=== PATIENT | male | born 1940 | race Caucasian/White ===

== ENCOUNTER 2018-10-07 11:56 | Observation (INO) | payer MEDICARE, OTHER ==
[~2018-10-07] VITALS: Ht 175.3 cm; Wt 70.3 kg
[~2018-10-07 11:56] MED LIST: ACEBUTOLOL HCL200 MG PO; ACETAMINOPHEN325 M1 PO; ASPIRIN81 MG PO; AUGMENTIN 500-1 EACH PO; CINNAMON500 MG PO; DOXAZOSIN MESYLA2 MG PO; IRON PO; LASIX40 MG PO; LIPITOR10 MG PO; LIPITOR20 MG PO; LISINOPRIL10 MG PO; MELATONIN3 MG PO; PROCRIT10000 UNIT SQ; VITAMIN D35000 UNIT PO; ZYRTEC10 M3 PO
--- OUTSIDE RECORDS SUMMARY | 2018-10-07 11:59 | XMS REPORT | Encounter Summary ---
Author Organization Unknown Address [address] [place] [id number] Phone [phone] Care Team Providers Care Linotypist Name Role Phone Froylan Larson MD 3 [phone] Reason for Visit Smoking Cessation Instructions 1. Cigarette smoker smoking cessation counseling, 3-10 minutes Chantix Starting Month Box 0.5 mg (11)-1 mg (42) tablets in dose pack call back, chantix 2. Edema of lower extremity leg and ankle edema: care instructions 3. Essential hypertension high blood pressure: care instructions 4. Hyperlipidemia high cholesterol: care instructions 5. Renal dialysis 6. Bradycardia bradycardia: care instructions Discussion Note Pt is in NAD; Verbalizes understanding of all instructions with no questions at this time. Plan of Care Patient Instructions Before starting Chantix get clearance from your PCP for approval and notify medical chemist of plan of care: Take medications as prescribed. We will give you a call in 7days and you must return in 4 weeks for follow up with us or your PCP. In case of an emergency call 911 or go to nearest ER. Reminders Provider Appointments None recorded. Lab None recorded. Referral None recorded. Procedures None recorded. Surgeries None recorded. Imaging None recorded. Medications Name Start Date acetaminophen alprazolam 0.5 mg disintegrating tablet Take 1 tablet 3 times a day by oral route. atorvastatin 40 mg tablet carvedilol 25 mg tablet cetirizine 10 mg capsule Take by oral route. Chantix Starting Month Box 0.5 mg (11)-1 mg (42) tablets in dose pack Take PO as directed citalopram 20 mg tablet Take 1 tablet every day by oral route. doxazosin 2 mg tablet furosemide 80 mg tablet Klor-Con M20 mEq tablet,extended release lisinopril metolazone 2.5 mg tablet nifedipine ER 30 mg tablet,extended release 24 hr nifedipine ER 60 mg tablet,extended release 24 hr tramadol 50 mg tablet Medications Administered None recorded. Vitals Height Weight BMI Blood Pressure 5 ft 9 in 150 lbs 22.2 kg/m2 (1) 140/50 mm[Hg] (2) 145/52 mm[Hg] Lab Results None recorded. Allergies Code Code System Name Reaction Severity Status Onset 1191 RxNorm Aspirin Active Nsaids (Non-steroidal Anti-inflammatory Drug) Active Opioids - Morphine Analogues Active Problems Name Status Onset Date Source Hyperlipidemia Active 03/14/2018 Anxiety Active 03/14/2018 Essential Hypertension Active 03/14/2018 Bradycardia Active 03/14/2018 Edema of Lower Extremity Active 03/14/2018 Cigarette Smoker Active 03/14/2018 Renal Dialysis Active 03/14/2018 Procedures Date Name Performed by Appendectomy Information not available Lumbar Spine Fusion Information not available Repair Laminectomy Defect Information not available Total Knee Arthroplasty Information not available Vaccine List None recorded. Social History Smoking Status Current Every Day Smoker Past Encounters 03/14/2018 Cigarette Smoker; Edema of Lower Extremity; Essential Hypertension; Hyperlipidemia; Renal Dialysis; Bradycardia Mi Neri, [employer]-C: [address] [place] [address], Ph. History of Present Illness Smoking Cessation Request Reported By: Patient HPI: Tobacco History Describe tobacco use, Previous counseling attempt to quit, tobacco use: smoking: cigarettes: recent increase in usage, tobacco use: smoking: wishing to stop, tobacco use: smoking: wishing to stop: for health reasons; 78 YOM pt presents for smoking cessation. Pt reports he had stopped smoking for a year and about a week ago resumed smoking. He has used Chantix in the past and was successful with smoking cessation. He denies any S.E from the medications. Pt has h/o HTN, HLD and acute renal failure and is currently undergoing dialysis 3 times a week, last treatment on 03-11-18. Per pt, he was cleared by nephrology (Dr Olguin) to start Chantix today but he asked him to go to his PCP for Rx. Pt reports he was not able to get an appointment with PCP today (Dr Larson) Depression Scale: 0 (Not at all) 1 (Several days) 2 (More than half days) 3 (Nearly every day): 1. Little interest or pleasure in doing things Score. 2. Feeling down, depressed, or hopeless Score. 3. Trouble falling or staying asleep Score. 4. Feeling tired or having little energy Score. 5. Poor appetite or overeating Score. 6. Feeling bad about yourself, or that you are a failure, or have let yourself or family down Score. 7. Trouble concentrating on things such as reading the newspaper or watching television Score. 8. Moving/Speaking noticeably slower or being fidgety/restless that you move around more than usual Score. 9. Thoughts that you would be better off or of hurting yourself or others Score Depression Scale Score e10: Likely Major Depression. Scores e15 exclude Chantix therapy: Depression Score Ranges: 5 to 9 Mild; 10 to 14 Moderate; 15 to 19 Moderately Severe; 20+ Severe Depression Scale Score. How difficult have these problems made it to work, take care of home, or get along with others? Not difficult at all, somewhat difficult, very difficult, or extremely difficult? Review of Systems Basic Reported By: Patient Constitutional: Constitutional: no fever Eyes: Eyes: no eye complaints Aknv-Jdzr-Qqtiq-Throat: Ears: no ear complaints. Nose: no nose/sinus problems. Mouth/Throat: no sore throat, no bleeding gums, no mouth complaints, no teeth problems Cardiovascular: Cardiovascular: no chest pain, no shortness of breath, no known heart murmur Respiratory: Respiratory: no cough, no wheezing, no shortness of breath Gastrointestinal: Gastrointestinal: no abdominal pain, no vomiting / diarrhea Genitourinary: Genitourinary: no urinary complaints, no discharge Musculoskeletal: Musculoskeletal: no muscle aches, no muscle weakness, no arthralgias/joint pain, no back pain Skin: Skin: no abnormal / changing mole, no jaundice, no rashes Neurologic: Neurologic: no loss of consciousness, no weakness, no numbness, no seizures, no dizziness, no headaches Physical Exam Adult Basic Reported By: Patient Constitutional: General Appearance: healthy-appearing, well-nourished, well-developed. Level of Distress: NAD. Ambulation: ambulating normally Psychiatric: Mental Status: active and alert. Orientation: to time, to place, to person Eyes: Lids and Conjunctivae: non-injected, no discharge, no pallor Hrr-Ohya-Xghhh-Throat: Ears: no lesions on external ear, no outer ear tenderness, EACs clear, TMs clear. Nose: no lesions on external nose, nares patent, no septal deviation, nasal passages clear, no sinus tenderness, no nasal discharge. Lips, Teeth, and Gums: no mouth or lip ulcers, no bleeding gums, poor dentition. Oropharynx: moist mucous membranes, no erythema, no exudates, tonsils not enlarged Neck: Lymph Nodes: no cervical LAD Lungs: Respiratory effort: no dyspnea, no tachypnea, no use of accessory muscles, no intercostal retractions. Auscultation: breath sounds normal Cardiovascular: Heart Auscultation: no murmurs, bradycardia Neurologic: Gait and Station: normal gait, normal station
--- OUTSIDE RECORDS SUMMARY | 2018-10-07 11:59 | XMS REPORT ---
Author Author [facility] Address Unknown Phone Unavailable Care Team Providers Care Resident Care Provider Name Role Phone FUNMI NAGEL Unavailable Unavailable Problems This patient has no known problems. Allergies, Adverse Reactions, Alerts This patient has no known allergies or adverse reactions. Medications This patient has no known medications. Results Test Description Test Time Test Comments Text Results Atomic Results Result Comments US RENAL DOPPLER LTD [place] [address] Patient Name: JAMES BLEU MR #: [id number] : 1940 Age/Sex: 77/M Req #: [id number] Adm Physician: Ordered by: FUNMI NAGEL MD Report #: [id number] Location: US Room/Bed: Procedure: [id number] US/US RENAL DOPPLER LTD Exam Date: Exam Time: REPORT STATUS: Signed Renal ultrasound with Doppler, April 16, 2017 Clinical history: Renal artery stenosis Comparison: None Technique: Reddy scale, color Doppler and spectral Doppler ultrasound with waveform analysis of the kidneys and renal arteries. Findings: Right kidney: 9.1 x 5.2 x 4.2 cm. Cortical thickness 1.4 cm. Left kidney: 11.3 x 6 x 5.2 cm. Cortical thickness 1.4 cm. Normal parenchymal echogenicity bilaterally. No evidence of stone, cyst or mass. No hydronephrosis. Aorta: Proximal: 65 cm/s; mid: 51 cm/s; distal 68 cm/s. Renal arteries: Right: Renal artery: Ostium: 63 cm/s; mid 93 cm/s; distal 99 cm/s. Segmental arteries: Superior: 58 cm/s; mid 47 cm/s; inferior 64 cm/s. Right renal artery to aorta peak systolic velocity ratio: 1.4 Right kidney resistive index: 0.83-0.88 Left: Renal artery: Ostium: 101 cm/s; mid 136 cm/s; distal 153 cm/s. Segmental arteries: Superior: 105 cm/s; mid 148 cm/s; inferior 105 cm/s. Right renal artery to aorta peak systolic velocity ratio: 2.2 Left kidney resistive index: 0.77-0.89 Both renal veins are patent. Both renal arteries demonstrate appropriate acceleration and biphasic waveform with brisk peak systolic upstroke. Impression: 1. No sonographic evidence of renal artery stenosis. 2. The resistive index of both kidneys is elevated, suggesting underlying chronic medical renal disease. This report was generated with voice-recognition technology. Errors in agency recruiter can occur. Please interpret accordingly and contact a radiologist if there are any questions regarding the report. Signed by: Dr. Cali khan M.D. on 04/16/2017 3:45 PM Dictated By: CALI CABALLERO MD 154 Transcribed By: RONNY on 04/16/171544 COPY TO: FUNMI NAGEL MD RENAL RETROPERITONEAL COMP [place] [address] Patient Name: JAMES BLUE MR #: [id number] : 1940 Age/Sex: 77/M Req #: [id number] Adm Physician: Ordered by: FUNMI NAGEL MD Report #: [id number] Location: Room/Bed: Procedure: [id number] US/US RENAL RETROPERITONEAL COMP Exam Date: Exam Time: REPORT STATUS: Signed Renal ultrasound with Doppler, April 16, 2017 Clinical history: Renal artery stenosis Comparison: None Technique: Reddy scale, color Doppler and spectral Doppler ultrasound with waveform analysis of the kidneys and renal arteries. Findings: Right kidney: 9.1 x 5.2 x 4.2 cm. Cortical thickness 1.4 cm. Left kidney: 11.3 x 6 x 5.2 cm. Cortical thickness 1.4 cm. Normal parenchymal echogenicity bilaterally. No evidence of stone, cyst or mass. No hydronephrosis. Aorta: Proximal: 65 cm/s; mid: 51 cm/s; distal 68 cm/s. Renal arteries: Right: Renal artery: Ostium: 63 cm/s; mid 93 cm/s; distal 99 cm/s. Segmental arteries: Superior: 58 cm/s; mid 47 cm/s; inferior 64 cm/s. Right renal artery to aorta peak systolic velocity ratio: 1.4 Right kidney resistive index: 0.83-0.88 Left: Renal artery: Ostium: 101 cm/s; mid 136 cm/s; distal 153 cm/s. Segmental arteries: Superior: 105 cm/s; mid 148 cm/s; inferior 105 cm/s. Right renal artery to aorta peak systolic velocity ratio: 2.2 Left kidney resistive index: 0.77-0.89 Both renal veins are patent. Both renal arteries demonstrate appropriate acceleration and biphasic waveform with brisk peak systolic upstroke. Impression: 1. No sonographic evidence of renal artery stenosis. 2. The resistive index of both kidneys is elevated, suggesting underlying chronic medical renal disease. This report was generated with voice-recognition technology. Errors in agency recruiter can occur. Please interpret accordingly and contact a radiologist if there are any questions regarding the report. Signed by: Dr. Cali Caballero M.D. on 04/16/2017 3:45 PM Dictated By: CALI CABALLERO MD [id number] Transcribed By: RONNY on 04/16/17 0701 COPY TO: FUNMI NAGEL MD
--- OUTSIDE RECORDS SUMMARY | 2018-10-07 11:59 | XMS REPORT | Continuity of Care Document ---
Author Author Gabriel carlitos [facility] Address Unknown Phone Unavailable Problems Problem Status Onset Date Classification Date Reported Comments Source Renal dialysis 03/14/2018 Diagnosis 03/14/2018 [facility] Essential hypertension 03/14/2018 Diagnosis 03/14/2018 [facility] Edema of lower extremity 03/14/2018 Diagnosis 03/14/2018 [facility] Cigarette smoker 03/14/2018 Diagnosis 03/14/2018 [facility] Hyperlipidemia 03/14/2018 Problem 03/14/2018 [facility] Anxiety 03/14/2018 Problem 03/14/2018 [facility] Essential Hypertension 03/14/2018 Problem 03/14/2018 [facility] Bradycardia 03/14/2018 Problem 03/14/2018 [facility] Edema of Lower Extremity 03/14/2018 Problem 03/14/2018 [facility] Cigarette Smoker 03/14/2018 Problem 03/14/2018 [facility] Renal Dialysis 03/14/2018 Problem 03/14/2018 [facility] Medications Medication Details Route Status Patient Instructions Ordering Provider Order Date Source acetaminophen acetaminophen Active [facility] Alprazolam 0.5 MG Disintegrating Oral Tablet alprazolam 0.5 mg disintegrating tablet Take 1 tablet 3 times a day by oral route. Active [facility] atorvastatin 40 MG Oral Tablet atorvastatin 40 mg tablet Active [facility] carvedilol 25 MG Oral Tablet carvedilol 25 mg tablet Active [facility] cetirizine hydrochloride 10 MG Oral Capsule cetirizine 10 mg capsule Take by oral route. Active [facility] Chantix Starting Month Box 0.5 mg (11)-1 mg (42) tablets in dose pack Chantix Starting Month Box 0.5 mg (11)-1 mg (42) tablets in dose pack Take PO as directed Active [facility] Citalopram 20 MG Oral Tablet citalopram 20 mg tablet Take 1 tablet every day by oral route. Active [facility] Doxazosin 2 MG Oral Tablet doxazosin 2 mg tablet Active [facility] Furosemide 80 MG Oral Tablet furosemide 80 mg tablet Active [facility] Microencapsulated Potassium Chloride 20 MEQ Extended Release Oral Tablet [Klor-Con] Klor-Con M20 mEq tablet,extended release Active [facility] lisinopril lisinopril Active [facility] Metolazone 2.5 MG Oral Tablet metolazone 2.5 mg tablet Active [facility] Osmotic 24 HR Nifedipine 30 MG Extended Release Oral Tablet nifedipine ER 30 mg tablet,extended release 24 hr Active [facility] Osmotic 24 HR Nifedipine 60 MG Extended Release Oral Tablet nifedipine ER 60 mg tablet,extended release 24 hr Active [facility] tramadol hydrochloride 50 MG Oral Tablet tramadol 50 mg tablet Active [facility] Allergies, Adverse Reactions, Alerts Substance Category Reaction Severity Reaction type Status Date Reported Comments Source Opioids - Morphine Analogues Allergy to substance 03/14/2018 [facility] Aspirin Allergy to substance 03/14/2018 [facility] Nsaids (Non-steroidal Anti-inflammatory Drug) Allergy to substance 03/14/2018 [facility] Immunizations Immunization Date Given Site Status Last Updated Comments Source Results Order Name Results Value Reference Range Date Interpretation Comments Source Vital Signs Vital Sign Value Date Comments Source Diastolic (mm Hg) 52 03/14/2018 [facility] Height 69 03/14/2018 [facility] Systolic (mm Hg) 145 03/14/2018 [facility] Weight 150 03/14/2018 [facility] Encounters Location Location Details Encounter Type Encounter Number Reason For Visit Attending Provider ADM Date DC Date Status Source [place] - [facility] - [id number] Neri, [facility] [address] [facility] [place] [address], Ph. [id number] Mi Neir 03/14/2018 [facility] Procedures Procedure Code Date Perfomer Comments Source Appendectomy [facility] Lumbar Spine Fusion 04981 [facility] Repair Laminectomy Defect 07831 [facility] Total Knee Arthroplasty 63962 [facility]
--- NOTE | 2018-10-07 12:40 | NUR ---
DR. CROUCH IN ROOM AT THIS TIME.
[2018-10-07] MEDS ORDERED: ASPIRIN 81 MG CHEW TAB PO ONE (13:00)
[2018-10-07 13:05] LABS: BASOPHILS % 0.5 % (0.0-1.0); EOSINOPHILS # (AUTO) 0.1 (0.0-0.4); HEMATOCRIT 41.8 % (38.2-49.6); HEMOGLOBIN 12.6 g/dL (14.0-18.0); LYMPHOCYTES # (AUTO) 0.5 (1.0-3.2); LYMPHOCYTES % 7.4 % (18.0-39.1); MEAN CORPUSCULAR HEMOGLOBIN 28.9 pg (28-32); MEAN CORPUSCULAR HGB CONC 30.1 g/dL (31-35); MEAN CORPUSCULAR VOLUME 95.9 fL (81-99); MONOCYTES # (AUTO) 0.8 (0.2-0.8); MONOCYTES % 11.4 % (4.4-11.3); NEUTROPHILS # (AUTO) 5.8 (2.1-6.9); NEUTROPHILS % 79.2 % (38.7-80.0); PLATELET COUNT 154 x10e3/uL (140-360); RED BLOOD COUNT 4.36 x10e6/uL (4.3-5.7); RED CELL DISTRIBUTION WIDTH 17.2 % (11.7-14.4)
[2018-10-07 13:18] LABS: ALBUMIN 3.9 g/dL (3.5-5.0); ALBUMIN/GLOBULIN RATIO 0.9 (0.8-2.0); ANION GAP 15.8 mmol/L (8-16); CALCIUM 9.5 mg/dL (8.4-10.2); CREATININE, SERUM 3.58 mg/dL (0.72-1.25); POTASSIUM 3.8 mmol/L (3.5-5.1)
[2018-10-07 14:14] LABS: CREATINE KINASE MB 1.2 ng/mL (0-5.0)
--- NOTE | 2018-10-07 14:41 | Diagnostic Imaging Report ---
Exam: Head CT without contrast History: Vertigo, dizziness, history of lung cancer. Comparison studies: None Technique: Axial images were obtained from the skull base to the vertex. Coronal and sagittal images reconstructed from the axial data. Dose modulation, iterative reconstruction, and/or weight based adjustment of the mA/kV was utilized to reduce the radiation dose to as low as reasonably achievable. Radiation dose: Total DLP: 921 mGy*cm. Estimated effective dose: DLP x 0.015 Intravenous contrast: None Findings: Scalp: No abnormalities. Bones: No fractures, blastic or lytic lesions. Brain sulci: Appropriate for age. Ventricles: Right lateral ventricle is partially effaced secondary to mass/edema described below. No hydrocephalus. Extra-axial spaces: No masses, no fluid collection. Parenchyma: At least 2 frontal lobe lesions with central hypodensity and small focal peripheral calcification or hemorrhage. Largest in the right inferomedial frontal lobe measures up to approximately 2.7 cm. Additional lesion at the junction of the right superior frontal gyrus and cingulate gyrus measures approximately 2.3 cm. Lesions are with moderate surrounding vasogenic edema which which extends into the adjacent deep and subcortical frontal white matter, along the corpus callosum and right subinsular white matter. Regional mass effect results in approximately 5 to 6 mm right to left subfalcine herniation. The frontal horn of the right lateral ventricle is partially effaced. Punctate calcification in the right superior parietal lobe without surrounding edema or mass effect may be sequela of remote infection/inflammation. Subtle hypodensities in the supratentorial white matter nonspecific most compatible with chronic microvascular ischemic changes. Sellar/suprasellar region: No abnormalities. Craniocervical junction: Patent foramen magnum. No Chiari one malformation. Incidental findings: Lens replacements for previous cataract surgery. Atherosclerotic calcifications in the carotid siphons. IMPRESSION: 1. At least 2 right frontal lobe lesions which are partially hemorrhagic or calcified are with moderate surrounding vasogenic edema. Largest lesion measures up to proximal 2.7 cm. Working diagnosis are metastases. 2. Regional mass effect results in 5-6 mm right to left subfalcine herniation. No uncal herniation. Brain MRI with IV contrast is recommended to further evaluate. Findings discussed with Tyree Woodard NP at 2:33 PM on 10/07/2018. Signed by: Dr. Tanner Lam M.D. on 10/07/2018 2:38 PM
[2018-10-07] MEDS ORDERED: DEXAMETHASONE SOD PHOS 10 MG/1 ML VIAL IV NR (15:45)
[2018-10-07] MEDS ORDERED: SODIUM CHLORIDE FLUSH 10 ML SYR INJ PRN (17:00)
[2018-10-07] MEDS ORDERED: ONDANSETRON HCL INJ 2MG/ML 2ML 2 MG/ML VIAL IV PRN (17:00)
[2018-10-07] MEDS ORDERED: DEXTROSE 50% SYRINGE 50 ML IV PRN (17:00)
--- NOTE | 2018-10-07 17:07 | Diagnostic Imaging Report ---
Examination: Single AP view of the chest. COMPARISON: None. INDICATION: Unsteady gait DISCUSSION: Lines/tubes: None. Lungs: Right upper lobe scarring. No consolidation otherwise. Pleura: There is no pleural effusion or pneumothorax. Heart and mediastinum: The heart and the mediastinum are unremarkable. Bones and soft tissues: No acute bony abnormalities. IMPRESSION: 1. No acute cardiopulmonary abnormalities. Signed by: Dr. Matias Mason M.D. on 10/07/2018 5:04 PM
[2018-10-07] MEDS: DEXAMETHASONE SOD PHOS INJ 4 MG/ML VIAL IV SCH (18:00)
[2018-10-07 18:45] VITALS: BP 171/74
--- NOTE | 2018-10-07 19:05 | NUR ---
Pt arrived on unit at 1830. Report received and walking rounds complete. Pt A&O and in no apparent distress. Pt on tele and room air. Pt has cane for assistive device. All safety measures ensured and call pickett near. Pt encouraged to use call pickett for assistance.
[2018-10-07 20:59] VITALS: BP 171/74
[2018-10-07] MEDS: INSULIN LISPRO 100 UNIT/1 ML 3ML VIAL SQ SCH (21:00)
[2018-10-07 21:01] VITALS: BP 171/74
--- NOTE | 2018-10-07 21:25 | NUR ---
Call put out to Dr. Cisneros for pt to receive Melatonin home med to sleep. Awaiting call back.
[2018-10-08] VITALS: BP 198/77
[2018-10-08 04:00] VITALS: BP 190/81
--- NOTE | 2018-10-08 04:52 | NUR ---
Dr. Cisneros returned call. gave okay for pt to have Melatonin 3mg home med restarted. Pt states he no longer needs it but will have it for tonight.
[2018-10-08] MEDS ORDERED: MELATONIN 3 MG TAB PO PRN ×2 (05:00→11:45)
[2018-10-08] MEDS: DEXAMETHASONE SOD PHOS INJ 4 MG/ML VIAL IV SCH ×3 (05:11→12:19)
[2018-10-08 05:18] LABS: BASOPHILS % 0.6 % (0.0-1.0); EOSINOPHILS # (AUTO) 0.1 (0.0-0.4); EOSINOPHILS % 1.4 % (0.0-6.0); HEMATOCRIT 38.3 % (38.2-49.6); LYMPHOCYTES # (AUTO) 0.7 (1.0-3.2); LYMPHOCYTES % 10.7 % (18.0-39.1); MEAN CORPUSCULAR HEMOGLOBIN 29.2 pg (28-32); MEAN CORPUSCULAR HGB CONC 31.3 g/dL (31-35); MEAN CORPUSCULAR VOLUME 93.2 fL (81-99); MONOCYTES % 14.6 % (4.4-11.3); NEUTROPHILS # (AUTO) 4.8 (2.1-6.9); NEUTROPHILS % 72.4 % (38.7-80.0); PLATELET COUNT 145 x10e3/uL (140-360); RED BLOOD COUNT 4.11 x10e6/uL (4.3-5.7); RED CELL DISTRIBUTION WIDTH 17.3 % (11.7-14.4)
[2018-10-08 05:43] LABS: ANION GAP 16.4 mmol/L (8-16); CALCIUM 9.2 mg/dL (8.4-10.2); CREATININE, SERUM 4.77 mg/dL (0.72-1.25); POTASSIUM 3.4 mmol/L (3.5-5.1)
[2018-10-08] MEDS: INSULIN LISPRO 100 UNIT/1 ML 3ML VIAL SQ SCH ×2 (07:30→11:30)
[2018-10-08 07:57] VITALS: BP 177/78
[2018-10-08] MEDS ORDERED: POTASSIUM CHLORIDE 10MEQ EA PO ONE (09:00)
[2018-10-08 09:10] VITALS: BP 177/78
[2018-10-08] MEDS ORDERED: GADOBENATE DIMEGLUMINE 1 ML IV ONE (09:42)
[2018-10-08] MEDS ORDERED: LASIX40 MG PO (10:20)
[2018-10-08] MEDS ORDERED: ULTRAM 50MG50 MG PO (10:20)
[2018-10-08] MEDS ORDERED: RENAGEL800 MG PO (10:20)
[2018-10-08] MEDS ORDERED: MELATONIN3 MG PO (10:20)
[2018-10-08] MEDS ORDERED: CETIRIZINE HCL10 MG PO (10:20)
[2018-10-08] MEDS ORDERED: XANAX0.5 MG PO (10:20)
[2018-10-08] MEDS ORDERED: COREG3.125 MG PO (10:20)
[2018-10-08] MEDS ORDERED: LIPITOR20 MG PO (10:20)
[2018-10-08] MEDS ORDERED: BENADRYL25 M1 PO (10:20)
[2018-10-08] MEDS ORDERED: VITAMIN D35000 UNIT PO (10:20)
[2018-10-08] MEDS ORDERED: CITALOPRAM HBR20 MG PO (10:20)
[2018-10-08] MEDS ORDERED: DOXAZOSIN MESYLA2 MG PO (10:20)
[2018-10-08] MEDS ORDERED: DEXAMETHASONE4 MG PO (10:22)
--- NOTE | 2018-10-08 10:52 | History and Physical ---
HISTORY AND PHYSICAL AND DISCHARGE SUMMARY CHIEF COMPLAINT: "I keep falling down." HISTORY OF PRESENT ILLNESS: This is a 78-year-old white man, who presents to [facility] Emergency Room with a 2-month history of unsteady gait and frequent falls. The patient has a history of non-small cell lung cancer that was diagnosed in 2017. The patient subsequently underwent a right-sided stereotactic radiation that was successful. The patient did not receive chemotherapy. The patient was a heavy tobacco smoker, but quit in March 2018. The patient was admitted yesterday and was diagnosed with ataxia. On admission, the patient had CT of the head without contrast that revealed two right frontal lobe lesions, one measured 2.7 cm, the other one measured 2.3 cm. The radiologist felt that these lesions were very consistent with brain metastases. The patient was given one dose of intravenous dexamethasone 10 mg strength in emergency room, and since then he is receiving dexamethasone 4 mg intravenous every 6 hours scheduled. The patient states that he feels his ataxia has improved. The patient has chronic shortness of breath and cough, but not worse than usual. The patient has chest pain at times. A chest x-ray performed in the emergency room revealed right upper lobe scarring, but no consolidation was appreciated. The patient's lab work was unremarkable, but it did reveal findings consistent with renal failure. This gentleman does have end-stage renal disease and yesterday he underwent hemodialysis. In fact, the reason he came to emergency room is because his blood pressure was so low. REVIEW OF SYSTEMS: GENERAL: The patient has apparently lost 12 pounds unintentionally in the last three months unintentionally. No fever or chills. No headaches or vision changes. He does complain of lightheadedness and dizziness at times. HEENT: No headaches. No visual changes. CARDIOVASCULAR: Chest pain/shortness of breath, as well as chronic cough. The patient denies any purulent sputum production. Denies any palpitations. GI: No nausea, vomiting, or constipation. : The patient still urinates even though he is on hemodialysis. Neuromuscular: The patient complaints of unsteady gait and frequent falls for the last two months. PAST MEDICAL HISTORY: 1. End-stage renal disease (since June 2017). 2. Coronary artery disease (coronary artery bypass grafting in June 2017). 3. Non-small cell non-small cell lung cancer diagnosed in 2018 with subsequent stereotactic radiation. 4. Anemia secondary to chronic kidney disease/chronic disease. 5. Depression. 6. Anxiety disorder. 7. Right carotid artery atherosclerosis. 8. Tobacco abuse (tobacco free since March 2018). 9. Benign prostatic hypertrophy. PAST SURGICAL HISTORY: 1. Left upper extremity AV fistula placement. 2. Coronary artery bypass grafting in June 2017. 3. Bilateral total knee replacement. 4. Lumbar spine surgery twice. 5. Femoral-popliteal bypass (right-sided). 6. Right lung stereotactic radiation. MEDICATIONS: 1. Furosemide 80 mg b.i.d. 2. Lisinopril/hydrochlorothiazide 20 mg/12.5 mg once daily. 3. Atorvastatin 40 mg at bedtime. 4. Alprazolam 0.5 mg b.i.d. for anxiety. 5. Metolazone 2.5 mg daily. 6. Zyrtec 10 mg daily. 7. Doxazosin 2 mg daily. 8. Melatonin 5 mg at bedtime. 9. Citalopram 20 mg daily. 10. Carvedilol 6.25 mg b.i.d. 11. Vitamin D3 5000 units daily. 12. Ultram 50 mg daily p.r.n. pain. 13. Diphenhydramine 50 mg at bedtime p.r.n. insomnia/sinus allergies. 14. Sevelamer 1600 mg t.i.d. with meals. ALLERGIES: NO KNOWN DRUG ALLERGIES. SOCIAL HISTORY: He is . Lives with his . He is currently retired. The patient was a heavy tobacco smoker, quit in March 2018. The patient states he still drinks alcohol socially. FAMILY HISTORY: Multiple family members with coronary artery disease. Father of congestive heart failure. Father also had coronary artery bypass grafting. PHYSICAL EXAMINATION: GENERAL: He is awake, alert, fluent, very pleasant, and cooperative with exam. VITAL SIGNS: Blood pressure at this time is 178/78, pulse 74, respiratory rate of 16, oxygen saturation 95%, temperature 99.0, height 5 feet 9 inches, weight 155 pounds. BMI is 22, blood pressure in the emergency room is 154/68 (the patient is currently not taking his blood pressure medications). INTEGUMENT: Skin is warm and dry. No pallor, jaundice, or diaphoresis. HEENT: Anicteric sclerae. Moist mucous membranes. NECK: Supple. No evidence of jugular venous distention. CARDIOVASCULAR: Distant heart sounds. Regular rate and rhythm with a systolic murmur/rub. LUNGS: No rales. No rhonchi or wheezing. ABDOMEN: Benign. EXTREMITIES: No joint deformities. Intact. DIAGNOSES: 1. Ataxia, likely secondary to the brain metastases. 2. Two frontal brain lesions, likely brain metastases. 3. History of non-small cell lung cancer (2018). 4. Status post stereotactic lung irradiation in 2018. 5. End-stage renal disease. 6. Coronary artery disease (history of coronary artery bypass grafting in June 2017). 7. Tobacco abuse (quit March2017). PLAN: 1. The patient is not to resume tobacco smoking. 2. We will proceed with MRI of the brain as ordered by the patient's oncologist. 3. Will likely discharge the patient home today after MRI of the brain with oral dexamethasone. 4. We will hold lisinopril/hydrochlorothiazide because of the patient's symptomatic hypotension. 5. We will also hold metolazone since the patient is having symptomatic hypotension and he has no leg edema. 6. If the patient is discharged home today, he will follow up with his radiation oncologist, namely Dr. Pierson within one week. 7. The patient will follow up with his primary care physician, namely myself, Dr. Sterling Cisneros in two days on September. 8. The patient will follow up with his oncologist, namely Dr. Duarte within a week. 9. The patient will be discharged with his home medications except he will not take metolazone or lisinopril/hydrochlorothiazide. 10. The patient will be discharged home with dexamethasone 2 mg three times a day for two weeks. I spent an hour in the care of this patient. MD HOLLI George/MACEY /[id number] cc: Qiana Duarte MD MTDD
[2018-10-08 11:23] VITALS: BP 200/84
[2018-10-08] MEDS ORDERED: ALPRAZOLAM 0.5 MG TAB PO PRN (11:45)
[2018-10-08] MEDS ORDERED: CLONIDINE HCL 0.1 MG TAB PO ONE (11:45)
[2018-10-08] MEDS ORDERED: DIPHENHYDRAMINE HCL 25 MG CAP PO PRN (11:45)
--- NOTE | 2018-10-08 12:45 | NUR ---
security notified of missing phone and are here talking to family. ER also notified and are trying to locate phone.
--- NOTE | 2018-10-08 13:13 | Diagnostic Imaging Report ---
EXAMINATION: MRI of the brain without contrast. HISTORY: Imbalance, metastatic lung cancer, evaluate for brain tumor COMPARISON: Head CT 10/07/2018 TECHNIQUE: Sagittal T2; axial DWI, T2, FLAIR, T1-IR, T2 gradient echo; coronal FLAIR. IMAGE QUALITY: Adequate. FINDINGS: Parenchyma: 1. Approximately 2 x 2.4 cm heterogeneous signal intensity partially solid and partially cystic (mostly low on T1, high on T2, FLAIR and DWI) mass in the right medial frontal lobe especially which narrows, with prominent surrounding vasogenic edema and mild local mass effect, the mass extends minimally extending to the midline. Mild approximately 5 mm midline shift to the left. Previously seen hyperdense likely hemorrhagic focus on CT is not clearly visualized on GRE sequenced at this time. 2. A second approximately 2.9 x 2.4 cm similar heterogeneous signal intensity partially solid and partially cystic mass in the posterior right medial orbital frontal gyri , with prominent surrounding vasogenic edema and local mass effect, approximately 6 mm midline shift to the left. 3. Focal FLAIR hyperintensity and subtle restricted diffusion in the left precentral gyrus near the vertex region may correspond to an additional smaller lesion versus acute/subacute ischemia. 4. Focal cortical subcortical gliosis in the left paracentral region may represent the sequela from remote ischemia. 5. Scattered white matter T2 and FLAIR hyperintense foci, most likely nonspecific chronic microvascular ischemic changes involving the jarrod as well. 6. Tiny calcification seen in the right parietal lobe on prior CT there is not clearly visualized on MRI. 7. No mass, hemorrhage, acute or chronic infarcts. Skull: Unremarkable. Vessels: Expected flow voids present in the major arteries and dural sinuses. Extra-axial spaces: No abnormal signal intensity or mass effect. Brain volume: Within normal limits for age. Ventricles: No hydrocephalus or displacement. Foramen magnum: Unremarkable. Sella: Unremarkable. Paranasal / mastoid sinuses: No significant inflammatory disease. IMPRESSION: 1. At least 2 large heterogeneous signal intensity lesions in the right frontal lobe worrisome for metastatic disease. 2. Focal FLAIR hyperintensity and subtle restricted diffusion in the left precentral gyrus may represent an additional small metastasis versus acute/subacute ischemia. 3. Approximately 6 mm midline shift to the left, unchanged from head CT of 10/07/2018. 4. Mild chronic microvascular ischemic changes and small chronic cortical infarct in the left paracentral gyri. Signed by: Dr. Urszula Rome M.D. on 10/08/2018 1:10 PM
[2018-10-08] MEDS ORDERED: ONDANSETRON HCL 4 MG ORAL DISINTEGRATING TAB PO PRN (13:30)
[2018-10-08] MEDS ORDERED: DEXAMETHASONE 4 MG TAB PO SCH (15:00)
[2018-10-08] MEDS ORDERED: SEVELAMER CARBONATE 800 MG TAB PO SCH (15:00)
--- NOTE | 2018-10-08 15:40 | Consultation ---
DATE OF CONSULTATION: CONSULTING PHYSICIAN: Qiana Duarte MD REASON FOR CONSULTATION: Abnormal CT scan of the brain. HISTORY OF PRESENT ILLNESS: Thank you very kindly Dr. Cisneros for letting me participate in the care of this very pleasant 78-year-old male, who is well known to me. I had been involved in managing his anemia from chronic kidney disease. He had received recombinant erythropoietin from 2008 until he went on dialysis in 2018. He also had a persistent lung nodule in the right upper lobe, which he had initially been reluctant to have it biopsied, but it was biopsied in October of 2017. Pathology revealed adenocarcinoma. A PET scan revealed no evidence of distant metastasis. In November of 2017, he was treated with stereotactic radiation. A followup PET scan in March 2018, revealed good response with no new areas of disease. The patient has been on regular dialysis. Additional comorbidities include coronary artery disease, status post bypass surgery. He was generally doing well and did not have any significant preceding symptoms like headache and nausea. He became little unsteady with his gait and almost was about to fall after the dialysis session yesterday and was sent to the emergency room. CT scan of the brain obtained in the emergency room revealed at least two lesions in the right frontal lobe with surrounding vasogenic edema. The largest tumor was 2.7 cm. He received a bolus of 10 mg of dexamethasone IV in the ER after the ER physician called me. Subsequently, he was admitted to the hospital and has been receiving 4 mg IV of dexamethasone. He is feeling much better today and feels like he can go home. He denied any other systemic symptoms. Additional details of the history are documented in the chart. PHYSICAL EXAMINATION: GENERAL: A well-developed healthy looking elderly male in no distress at rest. VITAL SIGNS: As recorded in the chart. HEENT: Conjunctivae are little pale. There is no icterus. There is no palpable peripheral adenopathy. NECK: There is no neck vein distention. LUNGS: Clear. HEART: Size appears within normal limits. Rhythm is regular. ABDOMEN: Soft without palpable visceromegaly. EXTREMITIES: Free of edema. He is able to move all extremities and does not have focal neurological deficit. IMPRESSION: Several metastasis with background history of carcinoma of the right upper lobe of the lung, treated with stereotactic radiation in October of 2017. Comorbidities as listed. I have discussed the case with Dr. Cisneros and also Dr. Mario Pierson, his radiation oncologist, who had treated him previously. He will be released on oral dexamethasone after having an MRI of the brain. I have advised him to bulk picker the disk of the MRI and bring it for radiation. Dr. Pierson's office would contact him to set up radiation appointment. I have asked him to followup after completion of radiation with me to reassess. MD EDIE Resendez/MACEY /[id number]
[2018-10-08] MEDS ORDERED: DOXAZOSIN MESYLATE 2 MG TAB PO SCH (17:00)
[2018-10-08] MEDS ORDERED: CARVEDILOL 3.125 MG TAB PO SCH (17:00)
[2018-10-08] MEDS ORDERED: FUROSEMIDE 40 MG TAB PO SCH (17:00)
[2018-10-08] MEDS ORDERED: ATORVASTATIN 20 MG TAB PO SCH (21:00)
[2018-10-08] MEDS ORDERED: ATORVASTATIN 40 MG TAB PO SCH (21:00)
[2018-10-08] MEDS ORDERED: MELATONIN 5 MG TABLET PO PRN (21:00)
[2018-10-09] MEDS ORDERED: CHOLECALCIFEROL 5000 UNIT PO SCH (09:00)
[2018-10-09] MEDS ORDERED: TRAMADOL HCL 50 MG TAB PO SCH (09:00)
[2018-10-09] MEDS ORDERED: CITALOPRAM HYDROBROMIDE 20 MG TAB PO SCH (09:00)
[2018-10-09] MEDS ORDERED: CHOLECALCIFEROL 1,000 UNIT TAB PO SCH (09:00)
== END 2018-10-08 13:30 | disposition home or self-care (01) ==
LOC: ER 11:56 → ERHOLD 16:58 → IMCU 18:45
PROVIDERS: ADMIT Internal Medicine; ATTEND Internal Medicine
DX: C79.31 Secondary malignant neoplasm of brain (principal); I12.0 Hypertensive chronic kidney disease with stage 5 chronic kidney disease or end stage renal disease; N18.6 End stage renal disease; Z99.2 Dependence on renal dialysis; Z87.891 Personal history of nicotine dependence; F41.9 Anxiety disorder, unspecified; I25.10 Atherosclerotic heart disease of native coronary artery without angina pectoris; Z95.1 Presence of aortocoronary bypass graft; F32.9 Major depressive disorder, single episode, unspecified; N40.0 Benign prostatic hyperplasia without lower urinary tract symptoms; I65.21 Occlusion and stenosis of right carotid artery; R27.0 Ataxia, unspecified; G93.6 Cerebral edema; C34.11 Malignant neoplasm of upper lobe, right bronchus or lung
CPT/HCPCS: 36415 ×2; 70450; 70551; 71045; 80048; 80053; 82550; 82553; 82948 ×2; 84484; 85025 ×2; 93005; 99284; G0378 ×2; J1100; J2405